=== PATIENT | male | born 1980 | race Caucasian/White ===

== ENCOUNTER 2020-09-13 12:59 | Emergency (ER) | payer BC ==
[~2020-09-13] VITALS: Ht 175.3 cm; Wt 93.0 kg
[2020-09-13] MEDS ORDERED: LIDOCAINE 4% PATCH TP STA (13:11)
[2020-09-13] MEDS ORDERED: METHYLPREDNISOLONE SOD SUCC 125 MG/2ML VIAL IM ONE (13:15)
[2020-09-13] MEDS ORDERED: KETOROLAC TROMETHAMINE 30 MG/ML VIAL IM PRN (13:15)
== END 2020-09-13 14:18 | disposition home or self-care (01) ==
LOC: ER 13:20
DX: R07.9 Chest pain, unspecified (principal)
CPT/HCPCS: 93005; 99283; J1885; J2930

== ENCOUNTER 2021-02-10 03:42 | Emergency (ER) | payer BC ==
[~2021-02-10] VITALS: Ht 175.3 cm; Wt 93.0 kg
[2021-02-10 03:59] LABS: BASOPHILS % 0.4 % (0.0-1.0); EOSINOPHILS # (AUTO) 0.2 (0.0-0.4); HEMATOCRIT 46.7 % (38.2-49.6); HEMOGLOBIN 15.8 g/dL (14.0-18.0); LYMPHOCYTES # (AUTO) 2.9 (1.0-3.2); LYMPHOCYTES % 33.9 % (18.0-39.1); MEAN CORPUSCULAR HEMOGLOBIN 31.2 pg (28-32); MEAN CORPUSCULAR HGB CONC 33.8 g/dL (31-35); MEAN CORPUSCULAR VOLUME 92.1 fL (81-99); MONOCYTES # (AUTO) 0.7 (0.2-0.8); MONOCYTES % 7.9 % (4.4-11.3); NEUTROPHILS # (AUTO) 4.7 (2.1-6.9); NEUTROPHILS % 55.6 % (38.7-80.0); PLATELET COUNT 274 x10e3/uL (140-360); RED BLOOD COUNT 5.07 x10e6/uL (4.3-5.7); RED CELL DISTRIBUTION WIDTH 13.2 % (11.7-14.4)
[2021-02-10 04:16] LABS: AMYLASE 35 U/L (25-125); LIPASE 21 U/L (8-78)
[2021-02-10 04:20] LABS: ALANINE AMINOTRANSFERASE 28 IU/L (0-55); ALBUMIN 4.2 g/dL (3.5-5.0); ALBUMIN/GLOBULIN RATIO 1.4 (0.8-2.0); ALKALINE PHOSPHATASE 63 IU/L (40-150); ANION GAP 19.8 mmol/L (8-16); BLOOD UREA NITROGEN 17 mg/dL (7-26); BUN/CREATININE RATIO 16 (6-25); CALCIUM 8.9 mg/dL (8.4-10.2); CARBON DIOXIDE 22 mmol/L (22-29); CHLORIDE 105 mmol/L (98-107); CREATINE KINASE 114 IU/L (30-200); CREATININE, SERUM 1.05 mg/dL (0.72-1.25); EST GLOMERULAR FILTRATION RATE > 60 ML/MIN (60-); GLUCOSE 96 mg/dL (74-118); POTASSIUM 3.8 mmol/L (3.5-5.1); SODIUM 143 mmol/L (136-145)
[2021-02-10] MEDS ORDERED: IOPAMIDOL 370 MG/ML 200 ML INFUS..BTL INJ ONE (04:35)
[2021-02-10] MEDS ORDERED: SODIUM CHLORIDE 0.9% 50ML 50 ML ONE (04:35)
[2021-02-10 05:36] LABS: CLARITY,URINE CLEAR (CLEAR); COLOR,URINE YELLOW (YELLOW); KETONES,URINE NEGATIVE (NEGATIVE); LEUKOCYTE ESTERASE ,URINE NEGATIVE (NEGATIVE); NITRITE,URINE NEGATIVE (NEGATIVE); PROTEIN,URINE DIPSTICK NEGATIVE (NEGATIVE); URINE UROBILINOGEN 0.2 mg/dL (0.2 - 1)
[2021-02-10 05:57] LABS: RBC,URINE 0-5 /HPF (0-5); WBC,URINE (MAN) 0-5 /HPF (0-5)
== END 2021-02-10 05:48 | disposition home or self-care (01) ==
LOC: ER 03:51
DX: R07.9 Chest pain, unspecified (principal); R94.31 Abnormal electrocardiogram [ECG] [EKG]; Z82.49 Family history of ischemic heart disease and other diseases of the circulatory system
CPT/HCPCS: 36415; 71260; 80053; 81001; 82150; 82550; 82553; 83690; 84484; 85025; 85379; 93005; 99284; Q9967

== ENCOUNTER 2023-03-12 03:56 | Observation (INO) | payer BC ==
[~2023-03-12] VITALS: Ht 175.3 cm; Wt 93.0 kg
[2023-03-12] MEDS ORDERED: ONDANSETRON HCL INJ 2MG/ML 2ML 2 MG/ML VIAL IV STA (04:19)
[2023-03-12] MEDS ORDERED: KETOROLAC TROMETHAMINE 30 MG/ML VIAL IV STA (04:19)
[2023-03-12 04:41] LABS: BASOPHILS % 0.3 % (0.0-1.0); EOSINOPHILS # (AUTO) 0.1 (0.0-0.4); EOSINOPHILS % 1.2 % (0.0-6.0); HEMATOCRIT 46.5 % (38.2-49.6); HEMOGLOBIN 15.7 g/dL (14.0-18.0); LYMPHOCYTES # (AUTO) 2.6 (1.0-3.2); LYMPHOCYTES % 21.2 % (18.0-39.1); MEAN CORPUSCULAR HEMOGLOBIN 30.7 pg (28-32); MEAN CORPUSCULAR HGB CONC 33.8 g/dL (31-35); MONOCYTES # (AUTO) 0.7 (0.2-0.8); MONOCYTES % 5.8 % (4.4-11.3); NEUTROPHILS # (AUTO) 8.6 (2.1-6.9); NEUTROPHILS % 71.1 % (38.7-80.0); PLATELET COUNT 294 x10e3/uL (140-360); RED BLOOD COUNT 5.11 x10e6/uL (4.3-5.7); RED CELL DISTRIBUTION WIDTH 12.8 % (11.7-14.4)
[2023-03-12 04:50] LABS: CLARITY,URINE CLEAR (CLEAR); COLOR,URINE YELLOW (YELLOW); KETONES,URINE NEGATIVE (NEGATIVE); LEUKOCYTE ESTERASE ,URINE NEGATIVE (NEGATIVE); NITRITE,URINE NEGATIVE (NEGATIVE); PROTEIN,URINE DIPSTICK NEGATIVE (NEGATIVE); URINE UROBILINOGEN 0.2 mg/dL (0.2 - 1)
[2023-03-12 04:55] LABS: BACTERIA,URINE FEW /HPF; EPITHELIAL CELLS,URINE FEW /LPF; WBC,URINE (MAN) 0-5 /HPF (0-5)
[2023-03-12 05:02] LABS: ANION GAP 15.1 mmol/L (8-16); CALCIUM 9.2 mg/dL (8.4-10.2); CREATININE, SERUM 1.3 mg/dL (0.72-1.25); POTASSIUM 4.1 mmol/L (3.5-5.1)
[2023-03-12] MEDS ORDERED: ONDANSETRON HCL INJ 2MG/ML 2ML 2 MG/ML VIAL IV PRN (06:00)
[2023-03-12] MEDS ORDERED: Morphine 4mg INJECTION 4 MG/ML INJ IV PRN (06:00)
[2023-03-12] MEDS ORDERED: CEFTRIAXONE 1 GM VIAL ONE (06:18)
[2023-03-12] MEDS: SODIUM CHLORIDE 0.9% 1000ML 1,000 ML IV SCH ×3 (06:24→21:06)
[2023-03-12] MEDS ORDERED: IOPAMIDOL 610MG/1ML 300 MG/ML VIAL IV ONE (09:02)
[2023-03-12] MEDS ORDERED: ACETAMINOPHEN 1000 MG/100 ML 100 ML IV ONE (09:40)
[2023-03-12] MEDS ORDERED: ACETAMINOPHEN/CODEINE 300MG - 30MG TAB PO PRN (12:00)
[2023-03-12] MEDS ORDERED: ONDANSETRON HCL INJ 2MG/ML 2ML 2 MG/ML VIAL ONE (12:41)
[2023-03-12] MEDS ORDERED: POVIDONE IODINE 0.05% 0.05 % ML PO ONE (12:41)
[2023-03-12] MEDS ORDERED: DEXAMETHASONE SOD PHOS INJ 4 MG/ML SDV ONE (12:41)
[2023-03-12] MEDS ORDERED: LIDOCAINE HCL 2% LOCAL INJ 5 ML SDV VIAL INJ ONE (12:41)
[2023-03-12] MEDS ORDERED: PROPOFOL IV EMULSION 10 MG/ML 20 ML VIAL ONE (12:41)
[2023-03-12] MEDS ORDERED: SEVOFLURANE INHAL SOLN 250 ML PEN BTL ONE (12:41)
[2023-03-12] MEDS: PHENAZOPYRIDINE HCL 100 MG TAB PO PRN ×2 (12:46→18:22)
[2023-03-12 13:00] VITALS: BP_SYST 127; BP_DIAS 80; BP_DIAS 86; PULSE 60; RESP 18; TEMP 98.2; O2SAT 100; O2SAT 99
[2023-03-12 13:10] VITALS: BP 127/86; PULSE 60; RESP 18; TEMP 98.2; O2SAT 99
[2023-03-12] MEDS ORDERED: MIDAZOLAM HCL 2 MG/2 ML VIAL ONE (13:57)
[2023-03-12] MEDS ORDERED: FENTANYL CITRATE/PF 100MCG/2 ML INJ ONE (13:57)
[2023-03-12] MEDS ORDERED: POLYETHYLENE GLYCOL 3350 17 GM PACK PO PRN (15:30)
[2023-03-12] MEDS ORDERED: ACETAMINOPHEN 325 MG TAB PO PRN (15:30)
[2023-03-12] MEDS ORDERED: HYDRALAZINE HCL 20 MG/ML VIAL IV PRN (15:30)
[2023-03-12 16:00] VITALS: BP 130/84; PULSE 59; RESP 17; TEMP 97.4; O2SAT 99
[2023-03-12] MEDS: FAMOTIDINE 20 MG TAB PO SCH (16:04)
[2023-03-12] MEDS: DOCUSATE SODIUM 100 MG CAP PO SCH (16:04)
[2023-03-12 20:00] VITALS: BP 129/74; PULSE 66; RESP 18; TEMP 98.6; O2SAT 96
[2023-03-12] MEDS ORDERED: TEMAZEPAM 15 MG CAP PO PRN (21:00)
[2023-03-13 00:46] VITALS: BP_SYST 128; BP_SYST 130; BP_DIAS 79; BP_DIAS 84; PULSE 55; PULSE 59; RESP 17; RESP 18; TEMP 97.4; TEMP 97.7; O2SAT 99
[2023-03-13 05:00] VITALS: BP 123/80; PULSE 65; RESP 18; TEMP 98.5; O2SAT 96
[2023-03-13] MEDS: SODIUM CHLORIDE 0.9% 1000ML 1,000 ML IV SCH (05:52)
[2023-03-13 05:58] LABS: BASOPHILS % 0.1 % (0.0-1.0); EOSINOPHILS % 0.1 % (0.0-6.0); HEMATOCRIT 42.6 % (38.2-49.6); HEMOGLOBIN 14.2 g/dL (14.0-18.0); LYMPHOCYTES # (AUTO) 1.6 (1.0-3.2); LYMPHOCYTES % 11.1 % (18.0-39.1); MEAN CORPUSCULAR HEMOGLOBIN 30.9 pg (28-32); MEAN CORPUSCULAR HGB CONC 33.3 g/dL (31-35); MEAN CORPUSCULAR VOLUME 92.8 fL (81-99); MONOCYTES # (AUTO) 0.8 (0.2-0.8); MONOCYTES % 5.8 % (4.4-11.3); NEUTROPHILS # (AUTO) 11.8 (2.1-6.9); NEUTROPHILS % 82.4 % (38.7-80.0); PLATELET COUNT 283 x10e3/uL (140-360); RED BLOOD COUNT 4.59 x10e6/uL (4.3-5.7)
[2023-03-13 06:32] LABS: ALBUMIN 3.2 g/dL (3.5-5.0); ALBUMIN/GLOBULIN RATIO 1.1 (0.8-2.0); ANION GAP 11.2 mmol/L (8-16); CALCIUM 8.7 mg/dL (8.4-10.2); CHOL/HDL RATIO 3.8 (3.9-4.7); CREATININE, SERUM 1.01 mg/dL (0.72-1.25); MAGNESIUM 2.1 MG/DL (1.3-2.1); PHOSPHORUS 2.9 MG/DL (2.3-4.7); POTASSIUM 4.2 mmol/L (3.5-5.1)
[2023-03-13 06:54] LABS: THYROID STIMULATING HORMONE 0.596 uIU/mL (0.350-4.940)
[2023-03-13] MEDS: FAMOTIDINE 20 MG TAB PO SCH (08:05)
[2023-03-13] MEDS: DOCUSATE SODIUM 100 MG CAP PO SCH (08:05)
[2023-03-13 08:47] VITALS: BP 137/78; PULSE 62; RESP 17; TEMP 98.1; O2SAT 97
[2023-03-13 08:54] VITALS: BP 137/78; PULSE 62; RESP 17; TEMP 98.1; O2SAT 97
[2023-03-13] MEDS ORDERED: SOLIFENACIN SUCCINATE 5 MG TAB PO SCH (09:00)
[2023-03-13] MEDS ORDERED: Acetaminophen/Codeine 300-30MG PO (09:07)
[2023-03-13] MEDS ORDERED: CEFUROXIME500 MG PO (09:07)
[2023-03-13] MEDS ORDERED: VESICARE5 MG PO (09:07)
[2023-03-13] MEDS ORDERED: ACETAMINOPHEN325 M1 PO (09:07)
[2023-03-13] MEDS: PHENAZOPYRIDINE HCL 100 MG TAB PO PRN (09:51)
== END 2023-03-13 10:10 | disposition home or self-care (01) ==
LOC: ER 04:03 → ERHOLD 06:01 → PACU V 11:54 → MED/SURG3 12:54
PROVIDERS: ADMIT Internal Medicine; ATTEND Internal Medicine
DX: N13.2 Hydronephrosis with renal and ureteral calculous obstruction (principal); N17.9 Acute kidney failure, unspecified; N35.912 Unspecified bulbous urethral stricture, male; F17.220 Nicotine dependence, chewing tobacco, uncomplicated; Z20.822 Contact with and (suspected) exposure to COVID-19; Z79.1 Long term (current) use of non-steroidal anti-inflammatories (NSAID); Z84.1 Family history of disorders of kidney and ureter
CPT/HCPCS: 36415 ×2; 52330; 52332; 74018; 74176; 74420; 80048; 80053; 80061; 81001; 83735; 83970; 84100; 84443; 84550; 85025 ×2; 99284; C1758 ×2; C1874; G0378 ×2; J0131; J0696 ×2; J1100; J1885; J2001; J2250; J2405; J2704; J3010; J7030; Q9967; U0002